=== PATIENT | female | born 1965 | race Caucasian/White ===

== ENCOUNTER 2021-04-09 17:20 | Observation (INO) ==
[2021-04-09] MEDS ORDERED: QUEtiapine Fumarate 100 MG TABLET PO SCH (23:00)
[2021-04-09] MEDS ORDERED: Naloxone 0.4 MG/ML INJ IVP PRN (23:12)
[2021-04-09] MEDS ORDERED: Ondansetron 4 MG/2 ML VIAL IVP PRN (23:12)
[2021-04-09] MEDS: 0.9 % Sodium Chloride 1,000 ML IVC SCH (23:26)
[2021-04-09] MEDS ORDERED: Perflutren Lipid Microsphere 1.3 ML in 0.9 % Sodium Chloride 8.7 ML IVP PRN (23:39)
[2021-04-09] MEDS: Nicotine 21 MG PATCH.TD24 TD SCH (23:58)
[2021-04-10 00:33] LABS: Hematocrit 39.8 % (35.3-44.9); Mean Corpuscular HGB Conc 35.2 g/dL (31.6-35.5); Mean Corpuscular Volume 88.1 fL (83.0-100.0); Mean Platelet Volume 10.2 fL (9.4-12.4); Platelet Count 205 K/mcL (140-400); Red Blood Count 4.52 M/mcL (3.82-4.97); Red Cell Distribution Width 12.3 % (11.5-14.5); White Blood Count 9.3 K/mcL (4.3-11.1)
[2021-04-10 00:40] LABS: INR 1.1; Prothrombin Time 12.6 Seconds (9.4-12.1)
[2021-04-10 00:42] LABS: BUN/Creatinine Ratio 12 (6-26); Blood Urea Nitrogen 10 mg/dL (6-20); Carbon Dioxide 23 mEq/L (23-29); Chloride 105 mEq/L (98-107); Chol/HDL Ratio 3.7 (0-4.9); Cholesterol 156 mg/dL (< 200); Glucose 159 mg/dL (70-105); HDL Cholesterol 42 mg/dL (40-59); LDL Cholesterol,Calculated 101 mg/dL (< 100); Magnesium 2.1 mg/dL (1.6-2.6); Osmolality,Calculated 290 (280-300); Potassium 4.1 mEq/L (3.5-5.1); Sodium 139 mEq/L (136-145); Triglycerides 66 mg/dL (< 150); eGFR For African Americans > 60 (> 60); eGFR For Non-African Americans > 60 (> 60)
[2021-04-10 00:43] LABS: Activated Partial Thrombo Time 29.6 Seconds (26.0-36.0)
[2021-04-10 00:58] LABS: Estimated Average Glucose 108 mg/dl; Hemoglobin A1C 5.4 %
[2021-04-10] MEDS ORDERED: Nitroglycerin 0.4 MG TAB.SUBL SL PRN ×2 (01:11→13:18)
[2021-04-10 04:49] LABS: Hepatitis B Surface Antigen Nonreactive (Nonreactive)
[2021-04-10 05:18] LABS: Hepatitis A Antibody IgM Nonreactive (Nonreactive); Hepatitis B Core IgM Nonreactive (Nonreactive)
[2021-04-10 05:19] LABS: Hepatitis C Virus Antibody Nonreactive (Nonreactive)
[2021-04-10] MEDS ORDERED: Lidocaine HCL 4 ML Topical Solution (Laryng-O-Jet Kit Sterile Pak) TP ONE ×2 (07:35→09:26)
[2021-04-10] MEDS ORDERED: *HR* Propofol 200 MG/20 ML VIAL IVP ONE ×2 (07:36→09:25)
[2021-04-10] MEDS ORDERED: *HR* Midazolam HCl 2 MG/2 ML VIAL ONE ×2 (07:36→09:24)
[2021-04-10] MEDS ORDERED: *HR* FentaNYL (PF) 100 MCG/2 ML VIAL ONE ×2 (07:36→09:24)
[2021-04-10] MEDS ORDERED: *HR* Succinylcholine 200 MG/10 ML VIAL IVP ONE ×2 (07:37→09:26)
[2021-04-10] MEDS ORDERED: Lidocaine -MPF 2% 2 ML VIAL ONE ×2 (07:37→09:26)
[2021-04-10] MEDS ORDERED: Ondansetron 4 MG/2 ML VIAL ONE ×2 (07:37→09:26)
[2021-04-10] MEDS ORDERED: *HR* Rocuronium Bromide 50 MG/5 ML VIAL ONE ×2 (07:37→09:26)
[2021-04-10] MEDS ORDERED: Isovue-300 50ML VIAL ONE (07:49)
[2021-04-10] MEDS: Nicotine 21 MG PATCH.TD24 TD SCH (08:35)
[2021-04-10] MEDS ORDERED: *HR* Buprenorphine HCl 8 MG TAB.SUBL SL SCH (09:00)
[2021-04-10] MEDS ORDERED: Aspirin Enteric Coated 81 MG Tablet PO SCH (09:00)
[2021-04-10] MEDS ORDERED: Piperacillin/Tazobactam 3.375 GM in 0.9 % Sodium Chloride Mini Bag 100 ML IVPB SCH (10:00)
[2021-04-10] MEDS ORDERED: Acetaminophen IV 1,000 MG/100 ML BAG IVPB ONE ×2 (10:17→11:03)
[2021-04-10] MEDS ORDERED: *HR* HYDROmorphone PF 0.5 MG/0.5 ML SYRINGE IVP PRN (10:18)
[2021-04-10] MEDS ORDERED: *HR* Meperidine 25 MG/ML SYRINGE IVP PRN (10:18)
[2021-04-10] MEDS ORDERED: Ondansetron 4 MG/2 ML VIAL IVP PRN (10:18)
[2021-04-10] MEDS ORDERED: Sugammadex Sodium 200 MG/2 ML VIAL IV ONE (11:03)
[2021-04-10] MEDS ORDERED: *HR* HYDROMORPHONE 2 MG/ML VIAL ONE (11:11)
[2021-04-10] MEDS ORDERED: Ketorolac 30 MG/ML VIAL ONE (11:13)
[2021-04-10] MEDS ORDERED: *HR* Labetalol 20 MG/4 ML SYRINGE IVP ONE (11:18)
[2021-04-10] MEDS ORDERED: Naloxone 0.4 MG/ML INJ IVP PRN (13:18)
[2021-04-10] MEDS ORDERED: *HR* Dextrose 50 % in Water (Vial) 50 ML VIAL IVP PRN (14:53)
[2021-04-10] MEDS ORDERED: Dextrose Gel 15 GM/37.5 ML TUBE PO PRN ×2 (14:53)
[2021-04-10] MEDS ORDERED: D5% in Water 1,000 ML IVC PRN (14:53)
[2021-04-10] MEDS: Piperacillin/Tazobactam 3.375 GM in 0.9 % Sodium Chloride Mini Bag 100 ML IVPB SCH (17:41)
[2021-04-10] MEDS: Ketorolac 15 MG/ML VIAL IVP SCH (17:42)
[2021-04-10] MEDS: Insulin LISPRO 300 UNITS/3 ML VIAL SUBQ SCH (17:42)
[2021-04-10] MEDS: 0.9 % Sodium Chloride 1,000 ML IVC SCH ×2 (17:42→19:26)
[2021-04-10] MEDS: amLODIPine 5 MG TABLET PO SCH (17:42)
[2021-04-10] MEDS: Famotidine 20 MG/2 ML VIAL IVP SCH (17:43)
[2021-04-10] MEDS: *HR* Buprenorphine HCl 8 MG TAB.SUBL SL SCH (19:38)
[2021-04-10] MEDS ORDERED: Insulin LISPRO 300 UNITS/3 ML VIAL SUBQ SCH (21:00)
[2021-04-10] MEDS ORDERED: QUEtiapine Fumarate 100 MG TABLET PO SCH (21:00)
[2021-04-10] MEDS ORDERED: Famotidine 20 MG/2 ML VIAL IVP SCH (23:09)
[2021-04-11] MEDS: 0.9 % Sodium Chloride 1,000 ML IVC SCH (00:22)
[2021-04-11] MEDS: Ketorolac 15 MG/ML VIAL IVP SCH ×2 (00:23→05:34)
[2021-04-11] MEDS: Piperacillin/Tazobactam 3.375 GM in 0.9 % Sodium Chloride Mini Bag 100 ML IVPB SCH ×2 (01:08→09:15)
[2021-04-11] MEDS: Famotidine 20 MG/2 ML VIAL IVP SCH (05:33)
[2021-04-11 07:08] VITALS: O2SAT 95
[2021-04-11 07:36] LABS: Hematocrit 37.4 % (35.3-44.9); Mean Corpuscular HGB Conc 34.8 g/dL (31.6-35.5); Mean Platelet Volume 10.1 fL (9.4-12.4); Platelet Count 189 K/mcL (140-400); Red Cell Distribution Width 12.6 % (11.5-14.5); White Blood Count 8.3 K/mcL (4.3-11.1)
[2021-04-11 08:06] LABS: Alanine Aminotransferase 436 Units/L (7-52); Albumin 3.8 g/dL (3.5-5.7); Alkaline Phosphatase 54 Units/L (34-104); Aspartate Amino Transferase 264 Units/L (13-39); BUN/Creatinine Ratio 11 (6-26); Bilirubin,Total 0.8 mg/dL (0.3-1.0); Blood Urea Nitrogen 10 mg/dL (6-20); Calcium 8.5 mg/dL (8.6-10.3); Carbon Dioxide 26 mEq/L (23-29); Chloride 108 mEq/L (98-107); Globulin 1.9 g/dL (2.4-3.5); Glucose 104 mg/dL (70-105); Magnesium 2.1 mg/dL (1.6-2.6); Osmolality,Calculated 293 (280-300); Phosphorous 3.3 mg/dL (2.7-4.5); Potassium 3.7 mEq/L (3.5-5.1); Sodium 142 mEq/L (136-145); Total Protein 5.7 g/dL (6.4-8.9); eGFR For African Americans > 60 (> 60); eGFR For Non-African Americans > 60 (> 60)
[2021-04-11] MEDS: Insulin LISPRO 300 UNITS/3 ML VIAL SUBQ SCH (08:43)
[2021-04-11] MEDS ORDERED: Nicotine 21 MG PATCH.TD24 TD SCH (09:00)
[2021-04-11] MEDS ORDERED: BuPROPion XL (24 HR) 150 MG TABLET PO SCH (09:00)
[2021-04-11] MEDS ORDERED: Acetaminophen 325 MG TABLET PO ONE (09:01)
[2021-04-11] MEDS: *HR* Buprenorphine HCl 8 MG TAB.SUBL SL SCH (09:15)
[2021-04-11] MEDS: amLODIPine 5 MG TABLET PO SCH (09:15)
[2021-04-11 11:26] VITALS: BP 137/78; PULSE 79; TEMP 98
== END 2021-04-11 11:47 | disposition home or self-care (01) ==
LOC: 3BNU → SUATTDRO 20:00
PROVIDERS: ADMIT Internal Medicine; ATTEND Internal Medicine